=== PATIENT | male | born 1960 | race Caucasian/White ===

== ENCOUNTER → 2023-06-27 | Outpatient (CLI) | payer OTHER ==
[~2023-06-27] MED LIST: PROHANCE 279.3MG/ML 15ML VIAL ONE; PROHANCE 279.3MG/ML 5ML VIAL ONE
== END ==
LOC: M PLAIMG 09:03
PROVIDERS: ATTEND Specialist
DX: C61 Malignant neoplasm of prostate (principal)

== ENCOUNTER → 2023-09-23 | Outpatient (CLI) | payer OTHER ==
[~2023-09-23] MED LIST changes: +MONT10TA97 PO; -PROHANCE 279.3MG/ML 15ML VIAL ONE; -PROHANCE 279.3MG/ML 5ML VIAL ONE; +SERT50TA29 PO
== END ==
LOC: M ONCR 14:19
PROVIDERS: ATTEND General Practice
DX: C61 Malignant neoplasm of prostate (principal); R97.20 Elevated prostate specific antigen [PSA]; Z71.2 Person consulting for explanation of examination or test findings; Z79.899 Other long term (current) drug therapy; Z80.42 Family history of malignant neoplasm of prostate

== ENCOUNTER → 2023-10-26 | Outpatient (CLI) | payer OTHER ==
[~2023-10-26] VITALS: Ht 177.8 cm; Wt 94.5 kg
[~2023-10-26] MED LIST changes: +CIPR750T2 PO; +LORA1TAB23 PO
[2023-10-26 14:33] VITALS: BP 122/78; TEMP 97.6; O2SAT 98
[2023-10-26] MEDS: LIDOCAINE 2% MDV 20ML VIAL XX ONE (14:42)
[2023-10-26 15:15] VITALS: BP 124/78; TEMP 97.4; O2SAT 98
== END ==
LOC: M ONCR 14:25
PROVIDERS: ATTEND General Practice
DX: C61 Malignant neoplasm of prostate (principal)
CPT/HCPCS: 55874; 55876; A4648; C1889

== ENCOUNTER 2023-12-08 08:16 | Outpatient (RCR) | payer OTHER ==
[2023-12-08] MEDS ORDERED: FLOM0.4C39 PO (15:01)
== END 2023-12-09 ==
LOC: M ONCR 08:16
PROVIDERS: ATTEND General Practice
DX: Z51.0 Encounter for antineoplastic radiation therapy (principal); C61 Malignant neoplasm of prostate

== ENCOUNTER → 2024-03-09 | Outpatient (CLI) | payer OTHER ==
[~2024-03-09] MED LIST changes: +FLOM0.4C39 PO
[2024-03-09 09:21] LABS: PROSTATIC SPECIFIC AG MONITOR 2.87 NG/ML (< 4.00)
== END ==
LOC: M ONCR 08:31
PROVIDERS: ATTEND General Practice
DX: C61 Malignant neoplasm of prostate (principal); R97.20 Elevated prostate specific antigen [PSA]; H81.09 Meniere's disease, unspecified ear; Z79.899 Other long term (current) drug therapy; Z92.3 Personal history of irradiation
CPT/HCPCS: 36415; 84153; 84403; G0463

== ENCOUNTER → 2024-09-11 | Outpatient (CLI) | payer OTHER ==
[~2024-09-11] MED LIST changes: +TEST10GE TOP
[2024-09-11 09:26] LABS: PROSTATIC SPECIFIC AG MONITOR 1.61 NG/ML (< 4.00)
== END ==
LOC: M ONCR 08:02
PROVIDERS: ATTEND General Practice
DX: C61 Malignant neoplasm of prostate (principal); N52.35 Erectile dysfunction following radiation therapy; E29.1 Testicular hypofunction; Z92.3 Personal history of irradiation; Z79.899 Other long term (current) drug therapy

== ENCOUNTER → 2024-09-18 | Outpatient (CLI) | payer OTHER ==
[2024-09-18 14:44] LABS: KETONE, URINE AUTO RFX NEGATIVE (NEGATIVE); LEUKOCYTE ESTERASE UR AUTO RFX NEGATIVE (NEGATIVE); MUCUS, URINE RFX SMALL (NEGATIVE); NITRITE, URINE AUTO RFX NEGATIVE (NEGATIVE); RBC, URINE AUTO RFX 1 /HPF (0-3); SQUAM EPITHELIAL CELL UR AURFX 0 /HPF (0-6); WBC, URINE AUTO RFX 0 /HPF (0-3)
== END ==
LOC: M ONCR 13:38
PROVIDERS: ATTEND General Practice
DX: C61 Malignant neoplasm of prostate (principal)